=== PATIENT | female | born 1955 | race Caucasian/White ===

== ENCOUNTER 2023-01-15 09:54 | Outpatient (CLI) | payer MEDICARE | END 2023-01-15 09:55 | disposition home or self-care (01) | LOC: BICMAMMO 09:54 | PROVIDERS: ATTEND Family Medicine | DX: Z12.31 Encounter for screening mammogram for malignant neoplasm of breast (principal) | CPT/HCPCS: 77063; 77067 ==

== ENCOUNTER 2023-02-08 14:23 | Outpatient (CLI) | payer MEDICARE | END 2023-02-08 14:24 | disposition home or self-care (01) | LOC: BICMAMMO 14:23 | PROVIDERS: ATTEND Family Medicine | DX: Z13.820 Encounter for screening for osteoporosis (principal); M85.851 Other specified disorders of bone density and structure, right thigh; M85.852 Other specified disorders of bone density and structure, left thigh | CPT/HCPCS: 77080 ==

== ENCOUNTER 2023-10-18 10:04 | Outpatient (CLI) | payer MEDICARE | END 2023-10-18 10:05 | disposition home or self-care (01) | LOC: BICRAD 10:04 | PROVIDERS: ATTEND Family Medicine | DX: M47.26 Other spondylosis with radiculopathy, lumbar region (principal); M41.24 Other idiopathic scoliosis, thoracic region; M51.34 Other intervertebral disc degeneration, thoracic region; M47.817 Spondylosis without myelopathy or radiculopathy, lumbosacral region; M41.9 Scoliosis, unspecified | CPT/HCPCS: 72070; 72100 ==

== ENCOUNTER 2024-04-14 12:41 | Outpatient (CLI) | payer MEDICARE | END 2024-04-14 12:42 | disposition home or self-care (01) | LOC: BICMRI 12:41 | PROVIDERS: ATTEND Psychiatry & Neurology Neurology | DX: G50.0 Trigeminal neuralgia (principal); R90.82 White matter disease, unspecified | CPT/HCPCS: 70553 ==

== ENCOUNTER 2025-02-02 12:53 | Outpatient (CLI) | payer MEDICARE | END 2025-02-02 12:54 | disposition home or self-care (01) | LOC: BICRAD 12:53 | PROVIDERS: ATTEND Family Medicine | DX: I10 Essential (primary) hypertension (principal); M41.9 Scoliosis, unspecified | CPT/HCPCS: 71046 ==